=== PATIENT | male | born 1995 ===

== ENCOUNTER 2019-02-08 09:03 | Emergency (ER) | payer SELFPAY ==
[~2019-02-08] VITALS: Wt 68.0 kg
[2019-02-08 09:10] VITALS: BP 126/81; PULSE 77; RESP 20
[2019-02-08] MEDS ORDERED: ACETAMINOPHEN 500 MG TAB PO STA (09:27)
[2019-02-08] MEDS ORDERED: ACET500C5 PO (09:53)
--- NOTE | 2019-02-08 10:01 | ERD ---
ER Documentation Chief Complaint Chief Complaint dropped trach can on right foot. pain no swelling. no deformity HPI This is a 23-year-old male with a nonsignificant past medical history who presents ED with right medial ankle/foot pain status post dropping a trash can on his foot yesterday. Patient admits to some painful range of motion with walking. Denies tingling, numbness, lack sensation, swelling, decreased range of motion all other symptoms. Admits to having a prior injury to this ankle in high school when he played football. Allergy to ibuprofen. ROS All systems reviewed and are negative except as per history of present illness. Medications Home Meds Active Scripts Acetaminophen* (Tylophen*) 500 Mg Capsule, 1 CAP PO Q6H PRN for PAIN AND OR ELEVATED TEMP, #20 CAP Prov:CARLENE RICHARDSON PA-C 02/08/19 Allergies Allergies: Coded Allergies: ibuprofen (Verified Allergy, Unknown, 02/08/19) PMhx/Soc Medical and Surgical Hx: pt denies Medical Hx, pt denies Surgical Hx Hx Alcohol Use: Yes (occassional) Hx Substance Use: No Hx Tobacco Use: No Smoking Status: Never smoker FmHx Family History: No diabetes Physical Exam Vitals Vital Signs Date Temp Pulse Resp B/P (MAP) Pulse Ox O2 O2 Flow FiO2 Time Delivery Rate 02/08/19 97.9 77 20 126/81 99 09:10 (96) Physical Exam Physical Exam Vitals signs: Reviewed by me. General: Well developed, well nourished, in no acute distress. Patient is awake and alert. Head: Normocephalic, atraumatic. Eyes: Normal conjunctiva, Pupils PERRLA, EOM intact grossly ENT: Pharynx is clear, Moist mucous membranes, external ears, nose and mouth normal MSK: No edema, no unilateral swelling, 5/5 strength Lower Extremity - bilateral: Skin: No laceration, swelling or evidence of external trauma Compartments: Soft Motor: Full active range of motion hip/knee/ankle/foot Sensation: Intact to light touch FDWS/MF/LF/P surfaces. Bones: All tenderness palpation along right medial malleolus ,nontender pelvis/knee/proximal tibia/foot Joints: No effusion or laxity Pulses/Perfusion: 2+ DP, Capillary refill < 2 seconds Neurologic: Alert and oriented, moving all extremities, normal speech, no focal weakness, no cerebellar signs. Normal mentation Skin: warm and dry, No rash Psych: Normal mood Results 24 hrs Current Medications Medications Dose Sig/Rosa Start Time Status Last (Trade) Ordered Route PRN Stop Time Admin Dose Reason Admin 1,000 mg ONCE STAT 02/08/19 DC 02/08/19 Acetaminophen PO 09:27 09:33 (Tylenol 02/08/19 09:28 Tab) Procedures/MDM EKG, MONITORS, & DIAGNOSTIC IMAGING: [place] [address] Radiology Main Line: [phone] DIAGNOSTIC IMAGING REPORT Patient: WENDY MCKEE : 1995 Age: 23 Sex: M MR #: [id number] DOS: 02/08/19926 Ordering MD: CARLENE RICHARDSON PA-C Location: [facility] Room/Bed: PROCEDURE: XR Ankle. CLINICAL INDICATION: Medial ankle pain TECHNIQUE: 3 views of the right ankle were performed. COMPARISON: None. FINDINGS: There is no acute fracture or dislocation. there is pes planus. There are ossific fragments adjacent to the medial malleolus from old avulsion fractures measuring up to 8 mm. There is mild osseous spurring within the tibiotalar joint and naviculocuneiform joints. Another small ossific fragment or osteophyte is noted adjacent to the dorsal distal navicular at the naviculocuneiform articulation measuring about 3 mm. There is no significant joint effusion. There is mild soft tissue swelling adjacent to the medial malleolus. RPTAT: AA IMPRESSION: 1. No acute bony abnormality. 2. Old avulsion fractures of the medial malleolus measuring up to 8 mm. 3. Small 3 mm old avulsion fragment or osteophyte adjacent to the dorsal distal navicular at the naviculocuneiform joint. 4. Minimal degenerative changes of the tibiotalar and naviculocuneiform joints. 5. Pes planus. .Melva Cunningham MD, Date Time Electronically viewed and signed by .Melva Cunningham MD, on 02/08/2019 09:44 .T/ CC: CARLENE RICHARDSON PA-C [phone] ER COURSE: The patient was given tylenol The medication was well tolerated and the patient reports improvement in symptoms. The patient was stable throughout ED course. I kept the patient and/or family informed of laboratory and diagnostic imaging results throughout the emergency room course. The patient was promptly evaluated and a treatment plan was devised based on H&P and other data. This plan was discussed with the patient who agreed and had no further questions or concerns prior to discharge. MEDICAL DECISION MAKIN-year-old male presents ED with right ankle/foot pain status post dropping a trash can on his foot yesterday. X-rays are unremarkable for any new fx. This is likely contusion crutches to aid with ambulation and also an Liam wrap. Advised to rice. History and physical examination other data not consistent with emergent processes including but not limited to fracture, dislocation, tendon rupture, ischemia, neurovascular injury, compartment syndrome, septic joint, avascular necrosis, osteomyelitis, necrotizing fasciitis, septic joint, septic arthritis, or other emergent conditions. Patient's vitals are stable and can be managed outpatient with close follow-up. Advised patient to follow-up with primary care in the next 48 hours. Return to ED with any worsening symptoms. DISPOSITION PLAN: We discussed follow up with the patient's primary care doctor within 24 to 48 hours. Patient counseled regarding my diagnostic impression and care plan. Prior to discharge all questions answered. Pt agrees with treatment plan and understands strict return precautions. Precautionary instructions provided including instructions to return to the ER if not improving or for any worsening or changing symptoms or concerns. SPECIALIST FOLLOW UP RECOMMENDED: None Patient has been advised to follow up with primary care in 1-2 days. Disclaimer: Inadvertent spelling and grammatical errors are likely due to EHR/dictation software use and do not reflect on the overall quality of patient care. Also, please note that the electronic time recorded on this note does not necessarily reflect the actual time of the patient encounter. Blood Pressure Assessment: Patient's blood pressure was elevated (>120/80) but appears stable without evidence of hypertension emergency or urgency. The patient was counseled about the risks of hypertension and urged to pursue outpatient monitoring and therapy within a week with their primary care physician. Departure Diagnosis: Primary Impression: Ankle pain Chronicity: acute Laterality: right Qualified Codes: M25.571 - Pain in right ankle and joints of right foot Condition: Stable Patient Instructions: R.I.C.E., Sprain, Ankle, With X-Ray Referrals: COMM[facility] CL[facility] YOU HAVE RECEIVED A MEDICAL SCREENING EXAM AND THE RESULTS INDICATE THAT YOU DO NOT HAVE A CONDITION THAT REQUIRES URGENT TREATMENT IN THE EMERGENCY DEPARTMENT. FURTHER EVALUATION AND TREATMENT OF YOUR CONDITION CAN WAIT UNTIL YOU ARE SEEN IN YOUR DOCTORS OFFICE WITHIN THE NEXT 1-2 DAYS. IT IS YOUR RESPONSIBILITY TO MAKE AN APPOINTMENT FOR FOLOW-UP CARE. IF YOU HAVE A PRIMARY DOCTOR --you should call your primary doctor and schedule an appointment IF YOU DO NOT HAVE A PRIMARY DOCTOR YOU CAN CALL OUR PHYSICIAN REFERRAL HOTLINE AT IF YOU CAN NOT AFFORD TO SEE A PHYSICIAN YOU CAN CHOSE FROM THE FOLLOWING [facility] [address] [facility]. [facility] [address] [facility] [address] [facility] [facility] [address] [facility] [facility] [address] [facility]. [facility]. [address] Additional Instructions: Patient advised to return to the ED immediately for new or worsening symptoms. Patient advised to follow up with primary care provider in the next 24-48 hours. Patient verbalized understanding and agrees with treatment plan and course of action. If patient has no primary care they may follow up with one of the [facility] clinics listed on the following page or one of the options listed below [facility] + [facility] [address] [place] [address] or [facility] [address] [place] [address] or [facility] [address] [place] [address] CARLENE RICHARDSON PA-C Feb 08, 2019 10:01
== END 2019-02-08 10:20 | disposition home or self-care (01) ==
LOC: FTE 09:03
DX: M25.571 Pain in right ankle and joints of right foot (principal)